=== PATIENT | female | born 1950 | race Caucasian/White ===

== ENCOUNTER 2019-04-28 14:18 | Emergency (ER) | payer MEDICARE ==
[~2019-04-28] VITALS: Ht 167.6 cm; Wt 63.0 kg
[2019-04-28] MEDS ORDERED: LIDOCAINE HCL/PF 1% 10 MG/ML 5ML VIAL IJ ONE (16:00)
[2019-04-28] MEDS ORDERED: HYDROCODONE/ACETAMINOPHEN 5/325MG TABLET PO ONE (16:00)
[2019-04-28] MEDS ORDERED: TETANUS, DIPHTHERIA, PERTUSSIS VAC/PF 0.5ML (>7YR OLD) IM ONE (16:00)
[2019-04-28] MEDS ORDERED: BACITRACIN ZINC OINT UDPKT TOP ONE (16:00)
[2019-04-28] MEDS: BACITRACIN 15GM TUBE TOP SCH ×2 (17:14→18:42)
[2019-04-28] MEDS ORDERED: CEFAZOLIN 1000MG PREMIX 50 ML IV ONE (18:12)
[2019-04-28 20:17] VITALS: BP 130/64
== END 2019-04-28 20:20 | disposition home or self-care (01) ==
LOC: ER 14:18
DX: S61.213A Laceration without foreign body of left middle finger without damage to nail, initial encounter (principal); S61.215A Laceration without foreign body of left ring finger without damage to nail, initial encounter; W27.4XXA Contact with kitchen utensil, initial encounter; Y93.89 Activity, other specified; Y92.010 Kitchen of single-family (private) house as the place of occurrence of the external cause
CPT/HCPCS: 73130; 90471; 90715; 96365; 99283; J0690; J3490

== ENCOUNTER 2019-04-30 10:26 | Emergency (ER) | payer MEDICARE, MEDICAID ==
[~2019-04-30] VITALS: Ht 172.7 cm; Wt 65.0 kg
[2019-04-30 11:49] VITALS: BP 115/78
== END 2019-04-30 11:49 | disposition home or self-care (01) ==
LOC: ER 10:26
DX: Z48.00 Encounter for change or removal of nonsurgical wound dressing (principal); M79.645 Pain in left finger(s)
CPT/HCPCS: 29130; 99283

== ENCOUNTER 2019-05-04 19:41 | Emergency (ER) | payer MEDICARE, MEDICAID ==
[~2019-05-04] VITALS: Ht 154.9 cm; Wt 51.0 kg
[2019-05-05] MEDS ORDERED: ACETAMINOPHEN 325MG TABLET PO ONE (02:30)
[2019-05-05 02:49] VITALS: BP 137/75
== END 2019-05-05 02:50 | disposition home or self-care (01) ==
LOC: ER 19:41
DX: Z48.00 Encounter for change or removal of nonsurgical wound dressing (principal); R03.0 Elevated blood-pressure reading, without diagnosis of hypertension
CPT/HCPCS: 99283

== ENCOUNTER 2019-05-09 15:56 | Emergency (ER) | payer MEDICARE, MEDICAID ==
[~2019-05-09] VITALS: Ht 154.9 cm; Wt 51.0 kg
[2019-05-09] MEDS ORDERED: LIDOCAINE/EPINEPHR/TETRACAINE 3ML TP ONE (17:45)
[2019-05-09] MEDS ORDERED: LIDOCAINE HCL/PF 1% 10 MG/ML 5ML VIAL IJ ONE (18:30)
[2019-05-09 20:12] VITALS: BP 145/69
== END 2019-05-09 20:12 | disposition home or self-care (01) ==
LOC: ER 15:56
DX: Z48.02 Encounter for removal of sutures (principal); M79.645 Pain in left finger(s)
CPT/HCPCS: 99282; J3490

== ENCOUNTER 2024-10-06 12:51 | Emergency (ER) | payer MEDICARE, MEDICAID ==
[~2024-10-06] VITALS: Ht 154.9 cm; Wt 58.6 kg
[2024-10-06 13:24] VITALS: O2SAT 98
[2024-10-06 14:38] LABS: BASOPHILS % 0.5 % (0.0-2.0); EOSINOPHILS % 0.5 % (0.0-5.0); HEMATOCRIT. 42.3 % (36.0-48.0); HEMOGLOBIN. 14.6 g/dL (12.0-16.0); LYMPHOCYTES % 15.1 % (20.0-50.0); MEAN CORPUSCULAR HEMOGLOBIN 31.5 pg (28.0-32.0); MEAN CORPUSCULAR HGB CONC 34.6 g/dL (31.0-37.0); MEAN PLATELET VOLUME 9.5 fl (7.4-10.4); MONOCYTES % 7.5 % (2.0-8.0); NEUTROPHILS % 76.4 % (40.0-76.0); PLATELET 226 x1000/uL (130-400); RED BLOOD CELL COUNT 4.64 mill/uL (4.2-5.4); RED CELL DISTRIBUTION WIDTH 13.6 % (11.6-14.6); WHITE BLOOD COUNT 11.6 x1000/uL (4.5-11.0)
[2024-10-06 15:00] LABS: CARBON DIOXIDE 29 mEq/L (21-32); CHLORIDE 101 mEq/L (98-107); POTASSIUM 3.9 mEq/L (3.5-5.1); SODIUM 139 mEq/L (136-145)
[2024-10-06 15:01] LABS: CALCIUM 10.1 mg/dL (8.7-10.4)
[2024-10-06 15:06] LABS: CREATININE 0.8 mg/dL (0.6-1.0); GLUCOSE 92 mg/dL (70-105); UREA NITROGEN BLOOD 9 mg/dL (9-23)
[2024-10-06 15:39] LABS: TROPONIN I HIGH SENSITIVITY < 4 ng/L (3.0-34)
[2024-10-06] MEDS ORDERED: P50 MT (16:23)
[2024-10-06] MEDS ORDERED: AMOX1TAB16 MT (16:23)
[2024-10-06] MEDS: CEFTRIAXONE SODIUM 1G VIAL IM ONE (17:11)
[2024-10-06 17:14] VITALS: BP 131/77; PULSE 88; RESP 18; TEMP 36.8; O2SAT 96
[2024-10-06] MEDS: LIDOCAINE HCL 1% 20ML VIAL INFIL ONE (17:16)
== END 2024-10-06 17:33 | disposition home or self-care (01) ==
LOC: ER 12:51
DX: J18.8 Other pneumonia, unspecified organism (principal); J44.89 Other specified chronic obstructive pulmonary disease; R94.31 Abnormal electrocardiogram [ECG] [EKG]; Z86.11 Personal history of tuberculosis
CPT/HCPCS: 99285; 71250; 71045; 80048; 85025; 84484; 36415; 93005; 96372; J0696; J3490